=== PATIENT | male | born 2000 | race African-American/Black ===

== ENCOUNTER 2022-03-13 17:43 | Emergency (ER) | payer BC, OTHER ==
[2022-03-13 17:57] VITALS: BP 183/80; PULSE 84; TEMP 99.2; BMI 23.1
[2022-03-13] MEDS ORDERED: ONDANSETRON *ODT* 4 MG TABLET SL ONE (19:35)
[2022-03-13] MEDS ORDERED: ONDANSETRON 4 MG TABLET PO ONE (19:38)
== END 2022-03-13 21:06 | disposition home or self-care (01) ==
LOC: JER 17:43
DX: U07.1 COVID-19 (principal)
CPT/HCPCS: 0241U-QW; 99283-25; Q0162